=== PATIENT | male | born 1965 | race Caucasian/White ===

== ENCOUNTER 2020-12-19 22:10 | Emergency (ER) | payer MEDICAID, OTHER ==
[~2020-12-19] VITALS: Ht 175.3 cm; Wt 77.3 kg
[2020-12-19] MEDS ORDERED: NEOMYCIN/BACITRACIN/POLYMYXIN B OINTMENT PACKET TP ONE (23:45)
[2020-12-20 00:44] VITALS: BP 156/90
== END 2020-12-20 01:01 | disposition home or self-care (01) ==
LOC: EMS 22:15
DX: S00.511A Abrasion of lip, initial encounter (principal); N18.6 End stage renal disease; Z99.2 Dependence on renal dialysis; W01.0XXA Fall on same level from slipping, tripping and stumbling without subsequent striking against object, initial encounter; Y93.01 Activity, walking, marching and hiking; Y92.89 Other specified places as the place of occurrence of the external cause; Y99.8 Other external cause status
CPT/HCPCS: 82962; 99282; 99283

== ENCOUNTER 2021-02-27 19:09 | Emergency (ER) | payer OTHER ==
[~2021-02-27] VITALS: Ht 175.3 cm; Wt 77.3 kg
[2021-02-27] MEDS ORDERED: ACETAMINOPHEN 500 MG TABLET PO ONE (20:45)
[2021-02-27 20:48] VITALS: BP 132/85
== END 2021-02-27 21:11 | disposition home or self-care (01) ==
LOC: EMS 19:17
DX: M25.512 Pain in left shoulder (principal); V43.92XA Unspecified car occupant injured in collision with other type car in traffic accident, initial encounter; Y93.89 Activity, other specified; Y92.89 Other specified places as the place of occurrence of the external cause; Y99.8 Other external cause status
CPT/HCPCS: 99283